=== PATIENT | female | born 1950 | race Caucasian/White ===

== ENCOUNTER 2017-02-03 11:12 | Day surgery (SDC) | payer MEDICARE, BC ==
--- NOTE | 2017-02-02 11:25 | HISTORY AND PHYSICAL E ---
History and Physical NAME: KAREN GRIMALDO : 1950 AGE: 66Y ADMITTED: 02/03/2017 ROOM: REFERRING PHYSICIAN: Dr. Blue HISTORY OF PRESENT ILLNESS: The patient is known to me since 2006 when she presented with constipation. Colonoscopy at that time showed hemorrhoids with no polyps. At this time the patient presented for colon exam. END OF DICTATION DICTATING PHYSICIAN: ONI SANFORD M.D. [id number] PHY#: [id number] ID: [id number] JOB#: [id number] ACCT: [id number] cc:ONI SANFORD M.D. >
--- NOTE | 2017-02-02 12:14 | HISTORY AND PHYSICAL E ---
History and Physical NAME: KAREN GRIMALDO : 1950 AGE: 66Y ADMITTED: 02/03/2017 ROOM: REFERRING PHYSICIAN: Hilda Rand MD HISTORY OF PRESENT ILLNESS: I have known the patient since 2006 where she presented with constipation. Colonoscopy showed hemorrhoids. The patient presents at this time for colon screening. Patient of Dr. Rand. Constipation. CHIEF COMPLAINT: Again, patient is 66 with reflux and gastric abdominal pain. SURGICAL HISTORY: [facility]. She did receive chemotherapy. SOCIAL HISTORY: Does not smoke. Does not drink. MEDICAL HISTORY: 1. She did have colonoscopy in 2006. 2. Left breast mastectomy; . 3. Tonsillectomy. REVIEWING OF SYSTEMS: CARDIAC: Negative. RESPIRATORY: Asthma. GASTROINTESTINAL: Reflux, abdominal pain. Hemorrhoids. ONCOLOGY/HEMATOLOGY: Left mastectomy. NEUROLOGY: Negative. FAMILY HISTORY: Father had stomach cancer. Mom has lung cancer. PHYSICAL EXAMINATION: GENERAL: Pleasant, alert, oriented. VITAL SIGNS: Blood pressure . Pulse 80. Respirations . Temperature is 98. HEAD, EYES, EARS, NOSE, THROAT: Normal. NECK: Is supple. LUNGS: Are clear. ABDOMEN: Soft. NEUROLOGIC: Examination negative. CONCLUSION: ABDOMINAL PAIN. PLAN: Go over the ultrasound, colon screening. Admit 02/03/2017. Today is 02/01/2017. DICTATING PHYSICIAN: ONI SANFORD M.D. [id number] [id number] PHY#: [id number] ID: [id number] JOB#: [id number] ACCT: [id number] cc:ONI SANFORD M.D. >
--- NOTE | 2017-02-02 16:03 | HISTORY AND PHYSICAL E ---
History and Physical NAME: KAREN GRIMALDO : 1950 AGE: 66Y ADMITTED: 02/03/2017 ROOM: CHIEF COMPLAINT: Patient for colon screening. HISTORY OF PRESENT ILLNESS: We saw the patient in the past. The patient presented at this time for colon screening. Reviewing records she did have history of hemorrhoids in 2006. PAST SURGICAL HISTORY: She did have a left mastectomy at [facility] in 1997. She did take chemotherapy at that time. REVIEW OF SYSTEMS: HEAD, EARS, EYES, NOSE AND THROAT: Asthma. CARDIAC: Negative. ENDOCRINE: Negative. GASTROINTESTINAL: Colon screening. ONCOLOGY/HEMATOLOGY: The patient did have left mastectomy. FAMILY HISTORY: Father had CA of the stomach. Mom had CA of the lung. PHYSICAL EXAMINATION: VITAL SIGNS: Blood pressure 170/80, pulse 80, respirations 18, temperature 98. HEAD, EARS, EYES, NOSE AND THROAT: Normal. NECK: Supple. LUNGS: Clear. ABDOMEN: Soft. NEUROLOGIC: Exam negative. MEDICATION: Ibuprofen. CONCLUSION: 1. Colon screening. 2. Gallbladder ultrasound. DICTATING PHYSICIAN: ONI SANFORD M.D. [id number] [id number] PHY#: [id number] ID: [id number] JOB#: [id number] ACCT: [id number] cc:ONI SANFORD M.D. >
[~2017-02-03 11:12] MED LIST: EPINEPHRINE INJ 1 MG/10 ML DISP.SYRIN ONE; FLUMAZENIL INJ 0.5 MG/5 ML VIAL ONE; GLUCAGON,HUMAN RECOMB 1 MG INJ ONE; GLYCOPYRROLATE INJ 0.4 MG/2 ML VIAL ONE; MIDAZOLAM 2 MG/2 ML INJ ONE; NALOXONE HCL INJ/PF 0.4 MG/1 ML SDV ONE; ONDANSETRON HCL INJ/PF 4 MG/2 ML SDV ONE
[2017-02-03] MEDS: FENTANYL CITRATE INJ/PF 100 MCG/2 ML AMPUL ONE ×3 (11:36→11:55)
[2017-02-03] MEDS: MIDAZOLAM 2 MG/2 ML INJ ONE ×2 (11:38→11:40)
[2017-02-03 13:33] LABS: ABSOLUTE BASOPHILS # (AUTO) 0.1 10^3/uL (0.0-0.2); ABSOLUTE EOSINOPHILS # (AUTO) 0.3 10^3/uL (0.0-0.6); ABSOLUTE LYMPHOCYTES (AUTO) 1.7 10^3/uL (0.5-4.7); ABSOLUTE MONOCYTES (AUTO) 1.4 10^3/uL (0.1-1.4); ABSOLUTE NEUT (AUTO) 9.7 10^3/uL (1.7-8.2); BASOPHILS % (AUTO) 0.7 % (0-2); EOSINOPHILS % (AUTO) 2.5 % (0-6); HEMATOCRIT 45.4 % (36.0-47.0); HEMOGLOBIN 15.2 g/dL (12.0-15.5); HGB HCT DIFFERENCE 0.2; LYMPHOCYTES % (AUTO) 13.1 % (13-45); MEAN CORPUSCULAR HEMOGLOBIN 28.6 pg (27.0-33.4); MEAN CORPUSCULAR HGB CONC 33.4 g/dL (32.0-36.0); MEAN CORPUSCULAR VOLUME 86 fl (80-97); MONOCYTES % (AUTO) 10.8 % (3-13); RED CELL DISTRIBUTION WIDTH 13.3 % (11.5-14.0); SEGMENTED NEUTROPHILS % (AUTO) 72.9 % (42-78); WHITE BLOOD COUNT 13.3 10^3/uL (4.0-10.5)
[2017-02-03 13:35] VITALS: BP 135/73
--- NOTE | 2017-02-03 13:47 | DISCHARGE SUMMARY E ---
Discharge Summary NAME: KAREN GRIMALDO : 1950 AGE: 66Y ADMITTED: 02/03/2017 DISCHARGED: 02/03/2017 FINAL DIAGNOSES: 1. SIGMOID DIVERTICULOSIS. 2. EXTERNAL HEMORRHOID. 3. SMALL POLYP IN THE SIGMOID RECTAL JUNCTION. HISTORY AND HOSPITAL COURSE: Patient is 66. Underwent colon screening today. She did have severe diverticulosis sigmoid descending colon. Small benign polyp in the rectosigmoid junction removed. Patient did have hemorrhoids on colonoscopy 2006. She did have a left mastectomy. Her colon screening shows no malignancy. DISCHARGE PLAN: Discharge on full liquid then soft low residual diet (soft diet tomorrow). Lab studies. Awaiting biopsy results. Hold aspirin, nonsteroidal today. Patient to see us in the office in the next few days. DICTATING PHYSICIAN: ONI SANFORD M.D. [id number] [id number] PHY#: [id number] ID: [id number] JOB#: [id number] ACCT: [id number] cc:ONI SANFORD M.D. >
[2017-02-03 13:49] LABS: ALANINE AMINOTRANSFERASE 41 U/L (9-52); ALKALINE PHOSPHATASE 61 U/L (38-126); ANION GAP 16 (5-19); ASPARTATE AMINO TRANSFERASE 26 U/L (14-36); BILIRUBIN,DIRECT 0.3 mg/dL (0.0-0.4); BILIRUBIN,TOTAL 0.8 mg/dL (0.2-1.3); BLOOD UREA NITROGEN 13 mg/dL (7-20); CALCIUM 9.3 mg/dL (8.4-10.2); CARBON DIOXIDE 23 mmol/L (22-30); CHLORIDE 104 mmol/L (98-107); CREATININE RESULT 0.85 mg/dL (0.52-1.25); GLUCOSE 162 mg/dL (75-110); POTASSIUM 3.8 mmol/L (3.6-5.0); SODIUM 142.7 mmol/L (137-145); TOTAL PROTEIN 6.8 g/dL (6.3-8.2)
--- NOTE | 2017-02-03 13:49 | OPERATIVE REPORT E ---
Operative Report NAME: KAREN GRIMALDO : 1950 AGE: 66Y DATE OF SURGERY: 02/03/2017 ROOM: PREOPERATIVE DIAGNOSES: 1. COLON SCREENING. 2. ABDOMINAL PAIN. POSTOPERATIVE DIAGNOSES: 1. EXTERNAL HEMORRHOIDS, MILD. 2. SEVERE DIVERTICULOSIS, SIGMOID COLON. 3. BENIGN POLYP IN THE RECTOSIGMOID JUNCTION. OPERATION: Colonoscopy. SURGEON: ONI SANFORD M.D. ANESTHESIA: Versed 4, fentanyl 100. TISSUE REMOVED OR ALTERED: Biopsy, rectal polyp. PROCEDURE: Patient very difficult to sedate. Difficult colonoscopy. severe diverticulosis in the sigmoid colon. Rectal exam: External hemorrhoids. Sigmoid: Severe diverticulosis. Small benign-looking polyp in the rectosigmoid junction removed by 2 biopsies. Descending colon redundant. Difficult to intubate, otherwise normal. Transverse colon normal. Ascending normal. Cecum normal. Scope withdrawn. Cecum, ascending, there was a small 2-mm AV malformation, not bleeding. Ascending colon otherwise normal. Transverse colon normal. Descending normal. Sigmoid: Severe diverticulosis and small polyp at the rectosigmoid junction. External hemorrhoids. PLAN: Baseline CBC. Full liquid diet today. Hold aspirin, nonsteroidal. Patient to see us in the office in the next few days. Next colonoscopy to be done after 2 years, to be done in the OR with anesthesia standby. She is very difficult to sedate. Most likely she needs propofol with deep sedation. DICTATING PHYSICIAN: ONI SANFORD M.D. [id number] [id number] PHY#: [id number] ID: [id number] JOB#: [id number] ACCT: [id number] cc:ONI SANFORD M.D. >
[2017-02-03 14:20] LABS: CARCINOEMBRYONIC ANTIGEN 0.5 ng/mL (<3.0)
== END 2017-02-03 13:30 | disposition home or self-care (01) ==
LOC: END 11:12
PROVIDERS: ATTEND Specialist
PROC: 0DBN8ZX Excision of Sigmoid Colon, Via Natural or Artificial Opening Endoscopic, Diagnostic (ICD-10-PCS; principal; 2017-02-03 12:00)
DX: D12.7 Benign neoplasm of rectosigmoid junction (principal); K64.4 Residual hemorrhoidal skin tags; K57.30 Diverticulosis of large intestine without perforation or abscess without bleeding; R10.9 Unspecified abdominal pain; Z90.12 Acquired absence of left breast and nipple; K21.9 Gastro-esophageal reflux disease without esophagitis; J45.909 Unspecified asthma, uncomplicated; Z80.0 Family history of malignant neoplasm of digestive organs; Z80.1 Family history of malignant neoplasm of trachea, bronchus and lung
CPT/HCPCS: 45380; 36415; 82378; 85025; 80053; 88305 ×2; J2250; J3010; J1610; J2405; J0171; J2310; J3490